=== PATIENT | male | born 1990 | race African-American/Black ===

== ENCOUNTER 2017-12-13 00:03 | Emergency (ER) | payer OTHER ==
[2017-12-13] MEDS ORDERED: METOCLOPRAMIDE 10 MG/2 ML VIAL IVP STA (00:15)
[2017-12-13] MEDS ORDERED: SODIUM CHLORIDE 0.9% 1,000 ML IV ONE (00:15)
[2017-12-13] MEDS ORDERED: KETOROLAC 60 MG/2 ML VIAL IVP STA (00:15)
[2017-12-13] MEDS ORDERED: diphenhydrAMINE INJ 50 MG/ML VIAL IVP STA (00:15)
--- NOTE | 2017-12-13 00:18 | ED Physician Documentation ---
PD HPI HEADACHE - Stated complaint Stated Complaint: HEADACHE - History obtained from History obtained from: Patient, Family - History of Present Illness Timing - onset during: Rest Timing - details: Gradual onset, Still present Location: Front, Global Quality: Aching Associated symptoms: Eye pain. No: Fever Worsened by: Light Similar symptoms before: Work up / diagnostics, Treatment Recently seen: Not recently seen - Additional information Additional information: Patient is a 27 year old male with a history of migraines who is presenting to the emergency department for headache. according to the patient and his family patient had a headache when he woke up this morning. they state that it gets worse with light and denies any alleviating factors. Review of Systems Ten Systems: 10 systems reviewed and negative Constitutional: denies: Fever, Chills GI: denies: Nausea, Vomiting Neurologic: reports: Headache PD PAST MEDICAL HISTORY - Present Medications Home Medications: Ambulatory Orders Medication Instructions Recorded Confirmed Lisinopril 10 mg PO 12/13/17 - Allergies Allergies/Adverse Reactions: Allergies Allergy/AdvReac Type Severity Reaction Status Date / Time No Known Drug Allergies Allergy Verified 12/13/17 00:18 PD ED PE NORMAL - Vitals Vital signs reviewed: Yes - General General: Alert and oriented X 3 - HEENT HEENT: Atraumatic, Ears normal, Moist mucous membranes - Neck Neck: Supple, no meningeal sign - Cardiac Cardiac: RRR - Respiratory Respiratory: No respiratory distress - Derm Derm: Normal color, Warm and dry, No rash - Extremities Extremities: No deformity, Normal ROM s pain, No calf tenderness / cord - Neuro Neuro: Alert and oriented X 3, 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 IV access was gained and patient was treated with fluid bolus, toradol, reglan and benadryl. Patient's blood pressure normalized and patient's headache resolved. while serious etiologies of the patient's headache were considered they were unlikely at this time. Patient required no further inpatient work up and was stable for discharge with outpatient follow up. - Sepsis Event Vital Signs: Vital Signs - 24 hr 12/13/17 12/13/17 00:15 01:09 Temperature 37.3 C Heart Rate 95 75 Respiratory 20 18 Rate Blood Pressure 140/81 H 118/55 L O2 Saturation 95 96 Oxygen O2 Source Room air Departure - Departure Disposition: 01 Home, Self Care Clinical Impression: Migraine Condition: Good Instructions: ED Headache Migraine Follow-Up: primary,care provider [Other] - Within 3 Days Comments: Your symptoms today are being caused by a migraine headache. it is important to track your triggers. two of the most common triggers are dehydration and lack of sleep. It is important to stay well hydrated and get plenty of sleep. Your blood pressure was originally high when you came in but it normalized on its own. You should continue to monitor your blood pressure and work with your pmd to make sure it is well controlled. you may return to the emergency department at any time for new, worsening or uncontrollable symptoms.
[2017-12-13 01:46] VITALS: BP 118/54
== END 2017-12-13 01:46 | disposition home or self-care (01) ==
LOC: ED 00:03
DX: G43.909 Migraine, unspecified, not intractable, without status migrainosus (principal)
CPT/HCPCS: 96361; 96374; 96375; 99283; 99284; J1200; J2765

== ENCOUNTER 2018-01-24 16:38 | Emergency (ER) | payer OTHER ==
--- NOTE | 2018-01-24 17:18 | ED Physician Documentation ---
History of Present Illness - Stated complaint Stated Complaint: RAPID HEART BEAT/DIZZY - Chief complaint Chief Complaint: Cardiac - History obtained from History obtained from: Patient - History of Present Illness Timing: Today (worse today, has been intermittent x 1 month) Pain level max: 0 Pain level now: 0 Improved by: nothing Worsened by: nothing - Additonal information Additional information: Patient has felt like his heartbeat has been irregular for the past month. worse today. Has never sought care before. States feels lightheaded and short of breath. No chest pain. Does not smoke. Has a pmhx of HTN, pt is on lisinopril. No fever. no vomiting. states feels tired today. Review of Systems Ten Systems: 10 systems reviewed and negative Constitutional: denies: Fever, Chills Ears: denies: Ear pain Nose: denies: Rhinorrhea / runny nose, Congestion Throat: denies: Sore throat Cardiac: denies: Chest pain / pressure Respiratory: denies: Cough GI: denies: Abdominal Pain, Nausea, Vomiting, Diarrhea Skin: denies: Rash Musculoskeletal: denies: Neck pain, Back pain Neurologic: denies: Focal weakness, Numbness, Headache PD PAST MEDICAL HISTORY - Past Medical History Past Medical History: Yes Cardiovascular: Hypertension Neuro: Headaches, Migraines - Past Surgical History Past Surgical History: No - Present Medications Home Medications: Ambulatory Orders Medication Instructions Recorded Confirmed Lisinopril 10 mg PO 12/13/17 Rivaroxaban [Xarelto] 15 mg PO BID #42 tablet 01/24/18 diltiaZEM [Cardizem] 30 mg PO Q6H #60 tablet 01/24/18 - Allergies Allergies/Adverse Reactions: Allergies Allergy/AdvReac Type Severity Reaction Status Date / Time No Known Drug Allergies Allergy Verified 01/24/18 16:53 - Social History Does the pt smoke?: No Smoking Status: Never smoker PD ED PE NORMAL - Vitals Vital signs reviewed: Yes - General General: Alert and oriented X 3, No acute distress - HEENT HEENT: Moist mucous membranes - Neck Neck: Supple, no meningeal sign - Cardiac Cardiac: RRR - Respiratory Respiratory: No respiratory distress, Clear bilaterally - Abdomen Abdomen: Soft, Non tender, Non distended - Back Back: No spinal TTP - Derm Derm: Warm and dry, No rash - Extremities Extremities: No edema, No calf tenderness / cord - Neuro Neuro: Alert and oriented X 3 - Psych Psych: Normal mood, Normal affect Results - Vitals Vitals: Vital Signs - 24 hr 01/24/18 01/24/18 01/24/18 16:50 17:57 18:43 Temperature 36.4 C L 36.4 C L Heart Rate 95 75 76 Respiratory 18 14 14 Rate Blood Pressure 122/90 H 123/75 120/82 H O2 Saturation 99 99 100 Oxygen O2 Source Room air - EKG (time done) 1700 Rate: Rate (enter#) (90) Rhythm: Atrial fibrillation, Other (PAC) [place]: Normal Intervals: Normal DC QRS: Normal Ischemia: Normal ST segments 1806 Rate: Rate (enter#) (88) Rhythm: Atrial fibrillation [place]: RAD QRS: Normal Ischemia: ST elevation c/w repol - Labs Labs: Laboratory Tests 01/24/18 01/24/18 01/24/18 17:25 17:25 17:25 WBC 6.3 RBC 5.27 Hgb 15.7 Hct 45.6 MCV 86.6 MCH 29.9 MCHC 34.5 RDW 12.9 Plt Count 367 MPV 7.3 L Neut # (Auto) 2.8 Lymph # (Auto) 2.8 [place] # (Auto) 0.6 Eos # (Auto) 0.1 Baso # (Auto) 0.1 Absolute Nucleated RBC 0.00 Nucleated RBC % 0.0 Sodium 139 Potassium 3.7 Chloride 101 Carbon Dioxide 30 Anion Gap 8.0 BUN 10 Creatinine 1.1 Estimated GFR (MDRD) 97 Glucose 96 Calcium 9.5 Total Bilirubin 1.8 H AST 21 ALT 20 Alkaline Phosphatase 60 Troponin I < 0.04 Total Protein 9.0 H Albumin 4.5 Globulin 4.5 H Albumin/Globulin Ratio 1.0 Lipase 32 TSH Free T4 01/24/18 17:25 WBC RBC Hgb Hct MCV MCH MCHC RDW Plt Count MPV Neut # (Auto) Lymph # (Auto) [place] # (Auto) Eos # (Auto) Baso # (Auto) Absolute Nucleated RBC Nucleated RBC % Sodium Potassium Chloride Carbon Dioxide Anion Gap BUN Creatinine Estimated GFR (MDRD) Glucose Calcium Total Bilirubin AST ALT Alkaline Phosphatase Troponin I Total Protein Albumin Globulin Albumin/Globulin Ratio Lipase TSH 1.04 Free T4 0.89 - Rads (name of study) cxr Radiology: Prelim report reviewed, EMP read contemporaneously, See rad report ( No acute disease) PD MEDICAL DECISION MAKING - ED course Complexity details: reviewed results, re-evaluated patient, considered differential, d/w patient, d/w family ED course: Patient is a 28-year-old male who presents to the emergency department with new onset atrial fibrillation with rapid ventricular response. Controlled well with Cardizem. Symptoms have been ongoing for a month, therefore cardioversion was not attempted at this time. Will place on anticoagulation instead and provide rate control for home. Discussed the case with the hospitalist here, Dr. Duenas who does not feel that admission is warranted at this time. Patient will follow up with his doctor for a outpatient echocardiogram and referral to cardiology. Patient counseled regarding signs and symptoms for which I believe and urgent re-evaluation would be necessary. Patient with good understanding of and agreement to plan and is comfortable going home at this time This document was made in part using voice recognition software. While efforts are made to proofread this document, sound alike and grammatical errors may occur. We did discuss Lovenox and warfarin versus Xarelto. Patient is chosen Xarelto. Counseled regarding risks and benefits. Including nonreversible bleeding. - Sepsis Event Vital Signs: Vital Signs - 24 hr 01/24/18 01/24/18 01/24/18 16:50 17:57 18:43 Temperature 36.4 C L 36.4 C L Heart Rate 95 75 76 Respiratory 18 14 14 Rate Blood Pressure 122/90 H 123/75 120/82 H O2 Saturation 99 99 100 Oxygen O2 Source Room air Departure - Departure Disposition: 01 Home, Self Care Clinical Impression: Atrial fibrillation with RVR Condition: Good Instructions: ED Afib Follow-Up: REBEKAH Francis [Provider Group] - Within 3 Days Prescriptions: diltiaZEM [Cardizem] 30 mg PO Q6H #60 tablet Rivaroxaban [Xarelto] 15 mg PO BID #42 tablet Comments: You need to follow-up with her PCM within the next 3 days. You need an echocardiogram of your heart and a referral to cardiology for your new onset atrial fibrillation. They will likely also want to place you on a Holter monitor to determine the amount of time that you are in atrial fibrillation. Avoid caffeine and stimulants. You are also started on a blood thinner, so please return if you notice rectal bleeding or if you are in any sort of trauma , even if it is minor especially if it affects your head. Forms: Activity restrictions Discharge Date/Time: 01/24/18 18:49
--- NOTE | 2018-01-24 17:28 | XRAY Report ---
Reason: chest pain Procedure Date: 01/24/2018 Accession Number: [id number] / [id number] Procedure: XR - Chest 2 View X-Ray CPT Code: 14035 FULL RESULT: EXAM: CHEST RADIOGRAPHY EXAM DATE: 01/24/2018 05:07 PM. CLINICAL HISTORY: Chest pain and palpitations. COMPARISON: None. TECHNIQUE: 2 views. FINDINGS: Lungs/Pleura: No focal opacities evident. No pleural effusion. No pneumothorax. Normal volumes. Mediastinum: Heart and mediastinal contours are unremarkable. Other: None. IMPRESSION: Normal 2-view chest radiography. RADIA
[2018-01-24] MEDS ORDERED: diltiaZEM INJ 5 MG/ML VIAL IVP STA (17:33)
[2018-01-24 17:36] LABS: BASOPHILS # (AUTO) 0.1 10^3/uL (0.0-0.1); BASOPHILS % (AUTO) 0.8 %; EOSINOPHILS # (AUTO) 0.1 10^3/uL (0.0-0.7); EOSINOPHILS % (AUTO) 1.4 %; HGB - HEMOGLOBIN 15.7 g/dL (14.0-18.0); LYMPHOCYTES # (AUTO) 2.8 10^3/uL (1.5-3.5); LYMPHOCYTES % (AUTO) 43.7 %; MEAN CORPUSCULAR HEMOGLOBIN 29.9 pg (27.0-31.0); MEAN CORPUSCULAR HGB CONC 34.5 g/dL (32.0-36.0); MEAN CORPUSCULAR VOLUME 86.6 fL (80.0-94.0); MEAN PLATELET VOLUME 7.3 fL (7.4-11.4); MONOCYTES # (AUTO) 0.6 10^3/uL (0.0-1.0); MONOCYTES % (AUTO) 9.5 %; NEUTROPHILS # (AUTO) 2.8 10^3/uL (1.5-6.6); NEUTROPHILS % (AUTO) 44.6 %; PLT - PLATELET COUNT 367 10^3/uL (130-450); RED BLOOD COUNT 5.27 10^6/uL (4.70-6.10); RED CELL DISTRIBUTION WIDTH 12.9 % (12.0-15.0); WHITE BLOOD COUNT 6.3 x10^3/uL (4.8-10.8)
[2018-01-24 17:44] LABS: ALBUMIN 4.5 g/dL (3.2-5.5); BILIRUBIN,TOTAL 1.8 mg/dL (0.2-1.0); CALCIUM 9.5 mg/dL (8.5-10.3); CREATININE 1.1 mg/dL (0.6-1.2)
[2018-01-24 18:06] LABS: THYROID STIMULATING HORMONE 1.04 uIU/mL (0.34-5.60)
[2018-01-24 18:08] LABS: FREE T4 (FREE THYROXINE) 0.89 ng/dL (0.58-1.64)
[2018-01-24] MEDS ORDERED: RIVAROXABAN 15 MG TABLET PO STA (18:28)
[2018-01-24] MEDS ORDERED: diltiaZEM 30 MG TABLET PO STA (18:28)
[2018-01-24 18:44] VITALS: BP 120/82
== END 2018-01-24 18:49 | disposition home or self-care (01) ==
LOC: ED 16:38
DX: I48.0 Paroxysmal atrial fibrillation (principal); I10 Essential (primary) hypertension
CPT/HCPCS: 36415; 71046; 80053; 83690; 84439; 84443; 84484; 85025; 93005; 96374; 99284; A9270

== ENCOUNTER 2019-07-25 22:32 | Emergency (ER) | payer OTHER ==
[2019-07-26] MEDS ORDERED: ASPIRIN CHEW 81 MG TABLET PO STA (00:14)
[2019-07-26 00:42] LABS: BASOPHILS # (AUTO) 0.1 10^3/uL (0.0-0.1); EOSINOPHILS # (AUTO) 0.2 10^3/uL (0.0-0.7); EOSINOPHILS % (AUTO) 2.3 %; HGB - HEMOGLOBIN 13.7 g/dL (14.0-18.0); LYMPHOCYTES % (AUTO) 57.6 %; MEAN CORPUSCULAR HEMOGLOBIN 28.7 pg (27.0-31.0); MEAN CORPUSCULAR HGB CONC 32.9 g/dL (32.0-36.0); MEAN PLATELET VOLUME 9.3 fL (7.4-11.4); MONOCYTES # (AUTO) 0.8 10^3/uL (0.0-1.0); MONOCYTES % (AUTO) 11.5 %; NEUTROPHILS # (AUTO) 1.9 10^3/uL (1.5-6.6); NEUTROPHILS % (AUTO) 27.5 %; PLT - PLATELET COUNT 347 10^3/uL (130-450); RED BLOOD COUNT 4.78 10^6/uL (4.70-6.10); RED CELL DISTRIBUTION WIDTH 12.3 % (12.0-15.0)
[2019-07-26 00:56] LABS: BILIRUBIN,TOTAL 0.6 mg/dL (0.2-1.0); CALCIUM 9.2 mg/dL (8.5-10.3); CREATININE 1.1 mg/dL (0.6-1.2)
--- NOTE | 2019-07-26 01:34 | XRAY Report ---
Reason: cough Procedure Date: 07/26/2019 Accession Number: [id number] / [id number] Procedure: XR - Chest 1 View X-Ray CPT Code: 26531 Final Report FULL RESULT: EXAM: CHEST RADIOGRAPHY EXAM DATE: 07/26/2019 01:00 AM. CLINICAL HISTORY: Cough. COMPARISON: CHEST 2 VIEW 01/24/2018 4:58 PM. TECHNIQUE: 1 view. FINDINGS: Lungs/Pleura: No dense consolidation. No large effusion or pneumothorax. No pulmonary edema. Mediastinum: Heart and mediastinal contours are unremarkable. Other: None. IMPRESSION: No acute radiographic pulmonary abnormalities. RADIA
--- NOTE | 2019-07-26 01:37 | ED Physician Documentation ---
PD HPI DYSPNEA - Stated complaint Stated Complaint: CP/SOA - Chief complaint Chief Complaint: Cardiac - History obtained from History obtained from: Patient - History of Present Illness Timing - onset: How many hours ago (2) Timing - onset during: Rest Timing - details: Gradual onset Associated symptoms: No: Fever, Cough - Additional information Additional information: 29 YEAR OLD MALE WITH HYPERTENSION WHO WAS DIAGNOSED WITH ATRIAL FIBRILLATION A YEAR AGO (WHO UNDER EP STUDY BY DR. CHANDRA) PRESNETS TO THE EMERGENCY DEPARTMENT WITH A SUDDEN ONSET OF DULL CHEST PAIN 2 HOURS PRIOR TO ARRIVAL WHILE HE WAS LAYING DOWN. HE REPORTS OF SHORTNESS OF BREATH WITHOUT DIZZINESS, NAUSEA, VOMI TING, DIAPHORESIS. PAIN DID NOT RADIATION AND WAS CENTERED AT ANTERIOR CHEST WALL. HE DENIES ANY COUGH, CONGESTION, FEVER, CHILLS, ARM NUMBNESS, TINGLING. PAIN FELT SIMILAR TO HIS PREVIOUS EPISODE OF ATRIAL FIBRILLATION. HE TAKES FLECANIDE FOR PAROXYSMAL ATRIAL FIBRILLATION. Review of Systems Constitutional: reports: Fever. denies: Chills Eyes: denies: Loss of vision Ears: denies: Loss of hearing, Ear pain Nose: denies: Rhinorrhea / runny nose, Foreign Body Cardiac: reports: Chest pain / pressure. denies: Pedal edema, Calf pain Respiratory: reports: Dyspnea. denies: Cough GI: denies: Abdominal Pain, Abdominal Swelling, Nausea, Vomiting Skin: denies: Rash Musculoskeletal: denies: Neck pain, Back pain, Extremity pain Neurologic: denies: Generalized weakness, Syncope, Seizure PD PAST MEDICAL HISTORY - Past Medical History Cardiovascular: Hypertension, Atrial fibrillation Neuro: Headaches, Migraines - Past Surgical History Past Surgical History: No Cardiovascular: Cardiac catheterization, Other - Present Medications Home Medications: Ambulatory Orders Medication Instructions Recorded Confirmed Flecainide [Tambocar] 1 tab BID 07/25/19 07/25/19 Isosorbide Dinitrate 1 tab DAILY PRN 07/25/19 07/25/19 Naproxen 1 tab BID 07/25/19 07/25/19 - Allergies Allergies/Adverse Reactions: Allergies Allergy/AdvReac Type Severity Reaction Status Date / Time No Known Drug Allergies Allergy Verified 07/26/19 00:11 - Social History Does the pt smoke?: No Smoking Status: Former smoker Does the pt drink ETOH?: No Does the pt have substance abuse?: No - Immunizations Immunizations are current?: Yes PD ED PE NORMAL - Vitals Vital signs reviewed: Yes - General General: Alert and oriented X 3, No acute distress - HEENT HEENT: Atraumatic - Neck Neck: Supple, no meningeal sign, No JVD - Cardiac Cardiac: RRR, No murmur, No gallop, No rub - Respiratory Respiratory: No respiratory distress - Abdomen Abdomen: Normal bowel sounds, Soft - Back Back: No CVA TTP - Derm Derm: Normal color, Warm and dry - Extremities Extremities: No deformity, No tenderness to palpate, Normal ROM s pain, No edema, No calf tenderness / cord - Neuro Neuro: Alert and oriented X 3, 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 Eye Opening: Spontaneous Motor: Obeys Commands Verbal: Oriented GCS Score: 15 - Psych Psych: Normal mood Results - Vitals Vitals: Oxygen O2 Source Room air - EKG (time done) 2243 Rate: Rate (enter#) (70) Rhythm: NSR Intervals: Prolonged AK (218MS), QRS normal QRS: Normal Ischemia: Non specific changes - Labs Labs: Laboratory Tests 07/26/19 07/26/19 07/26/19 00:34 00:34 00:34 WBC 7.0 RBC 4.78 Hgb 13.7 L Hct 41.6 L MCV 87.0 MCH 28.7 MCHC 32.9 RDW 12.3 Plt Count 347 MPV 9.3 Neut # (Auto) 1.9 Lymph # (Auto) 4.0 H [place] # (Auto) 0.8 Eos # (Auto) 0.2 Baso # (Auto) 0.1 Absolute Nucleated RBC 0.00 Nucleated RBC % 0.0 D-Dimer < 200.0 L Sodium 141 Potassium 3.7 Chloride 104 Carbon Dioxide 27 Anion Gap 10.0 BUN 17 Creatinine 1.1 Estimated GFR (MDRD) 96 Glucose 94 Calcium 9.2 Total Bilirubin 0.6 AST 20 ALT 23 Alkaline Phosphatase 53 Troponin I High Sens B-Natriuretic Peptide Total Protein 8.0 Albumin 4.0 Globulin 4.0 Albumin/Globulin Ratio 1.0 Lipase 37 07/26/19 07/26/19 00:34 00:34 WBC RBC Hgb Hct MCV MCH MCHC RDW Plt Count MPV Neut # (Auto) Lymph # (Auto) [place] # (Auto) Eos # (Auto) Baso # (Auto) Absolute Nucleated RBC Nucleated RBC % D-Dimer Sodium Potassium Chloride Carbon Dioxide Anion Gap BUN Creatinine Estimated GFR (MDRD) Glucose Calcium Total Bilirubin AST ALT Alkaline Phosphatase Troponin I High Sens 5.5 B-Natriuretic Peptide < 5 L Total Protein Albumin Globulin Albumin/Globulin Ratio Lipase PD MEDICAL DECISION MAKING - ED course Complexity details: re-evaluated patient, d/w patient ED course: 29 YEAR OLD MALE PRESENTS TO THE EMERGENCY DEPARTMENT WITH SUDDEN ONSET OF CHEST DISCOMFORT PRIOR TO ARRIVAL. HE WAS CONCERNED FOR RECURRENCE OF ATRIAL FIBRILLATION. EKG SHOWED SINUS RHYTHM WITH 1ST DEGREE AV BLOCK. PATIENT R EMAINED HEMODYNAMICALLY STABLE. CXR DID NOT SHOW INFILTRATIVE, PROCESS, PNEUMONIA, PNEUMOTHORAX OR WIDENED MEDIASTINUM TO SUGGEST AORTIC DISSECTION. D- DIMER WAS NEGATIVE; UNLIKELY TO HAVE PULMONARY EMBOLISM. AT THIS TIME, HE WAS STABLE TO BE DISCHARGED WITH CLOSE OUTPATIENT FOLLOW UP WITH DR. CHANDRA. STRICT RETURN INSTRUCTIONS WERE GIVEN. HE EXPRESSED VERBAL UNDERSTANDING AND WAS DISCHARGED IN STABLE CONDITION. Departure - Departure Disposition: 01 Home, Self Care Clinical Impression: Atypical chest pain Condition: Stable Instructions: ED Chest Pain Atypical Unkn Cause Follow-Up: Roberto Carlos Chandra MD [Physician No Access] - Within 1 week Comments: PLEASE CALL DR. CHANDRA'S OFFICE SOON POSSIBLE IN 1 WEEK FOR FOLLOW UP. Discharge Date/Time: 07/26/19 01:55
[2019-07-26 01:45] VITALS: BP 128/86
== END 2019-07-26 01:55 | disposition home or self-care (01) ==
LOC: ED 22:32
DX: R07.89 Other chest pain (principal); I44.0 Atrioventricular block, first degree; I10 Essential (primary) hypertension; Z87.891 Personal history of nicotine dependence
CPT/HCPCS: 36415; 71045; 80053; 83690; 83880; 84484; 85025; 85379; 93005; 99284; A9270

== ENCOUNTER 2019-10-14 11:12 | Emergency (ER) | payer OTHER ==
--- NOTE | 2019-10-14 11:31 | ED Physician Documentation ---
PD HPI CHEST PAIN - Stated complaint Stated Complaint: CHEST PX - Chief complaint Chief Complaint: Cardiac - History obtained from History obtained from: Patient - History of Present Illness Timing - onset: Last night Timing - onset during: Rest Timing - duration: Hours Timing - details: Gradual onset, Still present Quality: Pressure, Tightness Location: Substernal Radiation: No: Jaw, Neck, Back, Abdominal, Left upper extremity, Right upper extremity Improved by: Rest Worsened by: Inspiration Associated symptoms: Shortness of air, Nausea, Feeling faint / dizzy. No: Diaphoresis, Vomiting, General Weakness, Palpitations, Cough Similar symptoms before: Diagnosis (SVT, migraine) Recently seen: Clinic (2 weeks ago video follow up with cariologist.) Review of Systems Constitutional: denies: Fever Eyes: denies: Decreased vision Ears: denies: Ear pain Nose: denies: Rhinorrhea / runny nose, Congestion Throat: denies: Sore throat Cardiac: reports: Chest pain / pressure. denies: Palpitations, Pedal edema, Calf pain Respiratory: reports: Dyspnea. denies: Cough, Wheezing GI: reports: Nausea. denies: Abdominal Pain, Vomiting : denies: Dysuria, Frequency Skin: denies: Rash Musculoskeletal: denies: Neck pain, Back pain, Extremity pain Neurologic: reports: Headache. denies: Generalized weakness, Focal weakness, Numbness, Head injury, LOC PD PAST MEDICAL HISTORY - Past Medical History Cardiovascular: Hypertension, Atrial fibrillation Neuro: Headaches, Migraines - Past Surgical History Past Surgical History: No Cardiovascular: Cardiac catheterization, Other - Present Medications Home Medications: Ambulatory Orders Medication Instructions Recorded Confirmed Flecainide [Tambocar] 1 tab BID 07/25/19 07/25/19 Isosorbide Dinitrate 1 tab DAILY PRN 07/25/19 07/25/19 Naproxen 1 tab BID 07/25/19 07/25/19 Diltiazem HCl [Tiazac] 120 mg PO DAILY 10/14/19 10/14/19 Metoprolol Succinate [Toprol Xl] 12.5 mg PO DAILY 10/14/19 10/14/19 - Allergies Allergies/Adverse Reactions: Allergies Allergy/AdvReac Type Severity Reaction Status Date / Time No Known Drug Allergies Allergy Verified 10/14/19 11:26 - Social History Does the pt smoke?: No Smoking Status: Former smoker Does the pt drink ETOH?: No Does the pt have substance abuse?: No - Immunizations Immunizations are current?: Yes PD ED PE NORMAL - Vitals Vital signs reviewed: Yes (hypertensive ) - General General: Alert and oriented X 3, Well developed/nourished, Other (The patient is sitting in the emergency department with a towel over his eyes and the mask on.) - HEENT HEENT: Atraumatic, PERRL, EOMI, Ears normal, Moist mucous membranes, Pharynx benign, Dentition benign - Neck Neck: Supple, no meningeal sign, No bony TTP - Cardiac Cardiac: RRR, No murmur, Other (anterior chest wall tenderness ) - Respiratory Respiratory: No respiratory distress, Clear bilaterally - Abdomen Abdomen: Soft, Non tender - Back Back: No CVA TTP, No spinal TTP - Derm Derm: Normal color, Warm and dry, No rash - Extremities Extremities: No deformity, No edema - Neuro Neuro: Alert and oriented X 3, 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, No motor deficit, No sensory deficit, Normal speech Eye Opening: Spontaneous Motor: Obeys Commands Verbal: Oriented GCS Score: 15 - Psych Psych: Normal mood, Normal affect Results - Vitals Vitals: Vital Signs - 24 hr 10/14/19 10/14/19 10/14/19 11:23 12:43 13:00 Temperature 36.5 C Heart Rate 65 65 53 L Respiratory 16 18 20 Rate Blood Pressure 121/89 H 123/84 H 122/75 O2 Saturation 99 100 99 10/14/19 10/14/19 13:30 14:14 Temperature 36.8 C Heart Rate 53 L 57 L Respiratory 20 12 Rate Blood Pressure 125/85 H 134/69 H O2 Saturation 99 99 Oxygen O2 Source Room air - EKG (time done) 1125 Rate: Rate (enter#) (60) Rhythm: NSR Ischemia: ST elevation c/w repol, Other (ST elevation consistent with pericarditis) Compare to prior EKG: Unchanged from prior EKG (SPT 07-25-2019 no significant c hanges. ) Computer interpretation: Agree with computer - Labs Labs: Laboratory Tests 10/14/19 10/14/19 10/14/19 11:35 11:35 11:35 WBC 4.1 L RBC 4.49 L Hgb 13.6 L Hct 40.0 L MCV 89.1 MCH 30.3 MCHC 34.0 RDW 12.0 Plt Count 318 MPV 9.1 Neut # (Auto) 1.1 L Lymph # (Auto) 2.3 [place] # (Auto) 0.5 Eos # (Auto) 0.1 Baso # (Auto) 0.0 Absolute Nucleated RBC 0.00 Nucleated RBC % 0.0 ESR Sodium 137 Potassium 4.0 Chloride 102 Carbon Dioxide 28 Anion Gap 7.0 BUN 13 Creatinine 1.1 Estimated GFR (MDRD) 96 Glucose 97 Calcium 8.7 Total Bilirubin 1.6 H AST 22 ALT 21 Alkaline Phosphatase 38 L Troponin I High Sens 6.0 C-Reactive Protein Total Protein 7.7 Albumin 4.0 Globulin 3.7 Albumin/Globulin Ratio 1.1 Lipase 29 10/14/19 10/14/19 11:35 11:35 WBC RBC Hgb Hct MCV MCH MCHC RDW Plt Count MPV Neut # (Auto) Lymph # (Auto) [place] # (Auto) Eos # (Auto) Baso # (Auto) Absolute Nucleated RBC Nucleated RBC % ESR 4 Sodium Potassium Chloride Carbon Dioxide Anion Gap BUN Creatinine Estimated GFR (MDRD) Glucose Calcium Total Bilirubin AST ALT Alkaline Phosphatase Troponin I High Sens C-Reactive Protein < 1.0 Total Protein Albumin Globulin Albumin/Globulin Ratio Lipase - Rads (name of study) chest Radiology: Prelim report reviewed (Impression: Normal single view chest.), EMP read indepedently, See rad report Procedures - IVC sono (time) 1230 Bedside IVC sono: IVC measures (cm) (1.53), Euvolemia PD MEDICAL DECISION MAKING - ED course Complexity details: reviewed old records, reviewed results, re-evaluated patient, considered differential, d/w patient ED course: 29-year-old male with a history of SVT and A. fib with RVR is back in the emergency department today with chest pain similar to what is had previously and a migraine headache. He has improvement in the chest pain with the toradal but not the headache. He is administered IV compazine and benadryl with saline. He has improvement in his headache. His PMD Dr. Swanson at [facility] will follow up with him and have him follow up with cardiology. His chest pain is pleuritic in nature and improved with tordal and decadron. No pericardial effusion was seen and inflammatory markers are not elevated. Departure - Departure Disposition: Home, Self Care Clinical Impression: Atypical chest pain Migraine Qualifiers: Migraine type: unspecified Status migrainosus presence: without status migrainosus Intractability: not intractable Qualified Code(s): G43.909 - Migraine, unspecified, not intractable, without status migrainosus Instructions: ED Chest Pain Atypical Unkn Cause, ED Headache Migraine Follow-Up: Krystle Swanson MD [Primary Care Provider] - Discharge Date/Time: 10/14/19 14:30
[2019-10-14 11:44] LABS: HGB - HEMOGLOBIN 13.6 g/dL (14.0-18.0); RED BLOOD COUNT 4.49 10^6/uL (4.70-6.10); WHITE BLOOD COUNT 4.1 x10^3/uL (4.8-10.8)
[2019-10-14 11:45] LABS: EOSINOPHILS # (AUTO) 0.1 10^3/uL (0.0-0.7); EOSINOPHILS % (AUTO) 2.2 %; LYMPHOCYTES # (AUTO) 2.3 10^3/uL (1.5-3.5); LYMPHOCYTES % (AUTO) 56.2 %; MEAN CORPUSCULAR HEMOGLOBIN 30.3 pg (27.0-31.0); MEAN CORPUSCULAR VOLUME 89.1 fL (80.0-94.0); MEAN PLATELET VOLUME 9.1 fL (7.4-11.4); MONOCYTES # (AUTO) 0.5 10^3/uL (0.0-1.0); MONOCYTES % (AUTO) 12.7 %; NEUTROPHILS # (AUTO) 1.1 10^3/uL (1.5-6.6); NEUTROPHILS % (AUTO) 27.7 %; PLT - PLATELET COUNT 318 10^3/uL (130-450)
[2019-10-14 11:58] LABS: ALBUMIN/GLOBULIN RATIO 1.1 (1.0-2.2); BILIRUBIN,TOTAL 1.6 mg/dL (0.2-1.0); CALCIUM 8.7 mg/dL (8.5-10.3); CREATININE 1.1 mg/dL (0.6-1.2); TOTAL PROTEIN 7.7 g/dL (6.7-8.2)
--- NOTE | 2019-10-14 12:01 | XRAY Report ---
Reason: Chest pain Procedure Date: 10/14/2019 Accession Number: [id number] / [id number] Procedure: XR - Chest 1 View X-Ray CPT Code: 44951 Final Report FULL RESULT: EXAM: CHEST RADIOGRAPHY EXAM DATE: 10/14/2019 11:54 AM. CLINICAL HISTORY: Chest pain. COMPARISON: CHEST 1 VIEW 07/26/2019 12:44 AM. TECHNIQUE: 1 view. FINDINGS: Lungs/Pleura: No focal opacities evident. No pleural effusion. No pneumothorax. Mediastinum: Within exam limitations, the cardiomediastinal contour is normal. Other: None. IMPRESSION: Normal single view chest. RADIA
[2019-10-14] MEDS ORDERED: KETOROLAC 30 MG/ML VIAL IVP STA (12:28)
[2019-10-14] MEDS ORDERED: DEXAMETHASONE 10 MG/ML VIAL IVP STA (12:29)
[2019-10-14] MEDS ORDERED: SODIUM CHLORIDE 0.9% 1,000 ML IV STA (13:48)
[2019-10-14] MEDS ORDERED: diphenhydrAMINE INJ 50 MG/ML VIAL IVP STA (13:48)
[2019-10-14] MEDS ORDERED: PROCHLORPERAZINE 10 MG/2 ML VIAL IVP STA (13:48)
[2019-10-14 14:16] VITALS: BP 134/69
== END 2019-10-14 14:30 | disposition home or self-care (01) ==
LOC: ED 11:12
DX: R07.89 Other chest pain (principal); G43.909 Migraine, unspecified, not intractable, without status migrainosus; I10 Essential (primary) hypertension; Z87.891 Personal history of nicotine dependence
CPT/HCPCS: 36415; 71045; 80053; 83690; 84484; 85025; 85651; 86140; 93005; 96374; 96375; 99284; J1200

== ENCOUNTER 2019-10-26 14:19 | Emergency (ER) | payer OTHER ==
[2019-10-26 14:44] LABS: BASOPHILS # (AUTO) 0.1 10^3/uL (0.0-0.1); EOSINOPHILS # (AUTO) 0.1 10^3/uL (0.0-0.7); EOSINOPHILS % (AUTO) 1.3 %; HGB - HEMOGLOBIN 14.4 g/dL (14.0-18.0); LYMPHOCYTES # (AUTO) 2.4 10^3/uL (1.5-3.5); LYMPHOCYTES % (AUTO) 50.4 %; MEAN CORPUSCULAR HEMOGLOBIN 30.3 pg (27.0-31.0); MEAN CORPUSCULAR VOLUME 89.3 fL (80.0-94.0); MEAN PLATELET VOLUME 9.2 fL (7.4-11.4); MONOCYTES # (AUTO) 0.6 10^3/uL (0.0-1.0); MONOCYTES % (AUTO) 11.5 %; NEUTROPHILS # (AUTO) 1.7 10^3/uL (1.5-6.6); NEUTROPHILS % (AUTO) 35.6 %; PLT - PLATELET COUNT 327 10^3/uL (130-450); RED BLOOD COUNT 4.75 10^6/uL (4.70-6.10); RED CELL DISTRIBUTION WIDTH 12.2 % (12.0-15.0); WHITE BLOOD COUNT 4.8 x10^3/uL (4.8-10.8)
--- NOTE | 2019-10-26 14:53 | ED Physician Documentation ---
PD HPI CHEST PAIN - Stated complaint Stated Complaint: CHEST PRESSURE - Chief complaint Chief Complaint: Cardiac - History obtained from History obtained from: Patient - History of Present Illness Timing - onset: Other (29-year-old gentleman with history of atrial fibrillation and potentially pericarditis presents with chest pressure that started last night became more market this morning at rest at 10 AM. He notices it most if he takes a deep breath in. He says it feels like a rubber band stretching and then sometimes it releases and the pain goes away. There is no associated shortness of breath, pedal edema, calf pain, hemoptysis. He does have a history of atrial fibrillation. As far as he knows the last time he was in atrial fibrillation was December 2017. He is maintained on diltiazem, Xarelto.) Review of Systems Ten Systems: 10 systems reviewed and negative Constitutional: reports: Reviewed and negative Cardiac: reports: Chest pain / pressure. denies: Palpitations, Pedal edema, Calf pain Respiratory: denies: Dyspnea PD PAST MEDICAL HISTORY - Past Medical History Cardiovascular: Hypertension, Atrial fibrillation Respiratory: None Neuro: Headaches, Migraines Endocrine/Autoimmune: None GI: None : None HEENT: None Musculoskeletal: None Derm: None - Past Surgical History Past Surgical History: No Cardiovascular: Cardiac catheterization, Other - Present Medications Home Medications: Ambulatory Orders Medication Instructions Recorded Confirmed Flecainide [Tambocar] 50 mg PO BID 07/25/19 10/26/19 Isosorbide Dinitrate 30 mg PO DAILY PRN 07/25/19 10/26/19 Naproxen 500 mg PO BID 07/25/19 10/26/19 Diltiazem HCl [Tiazac] 120 mg PO DAILY 10/14/19 10/26/19 Metoprolol Succinate [Toprol Xl] 0.5 tab PO DAILY 10/14/19 10/26/19 Rivaroxaban [Xarelto] 0 mg PO DAILY 10/26/19 10/26/19 - Allergies Allergies/Adverse Reactions: Allergies Allergy/AdvReac Type Severity Reaction Status Date / Time No Known Drug Allergies Allergy Verified 10/14/19 11:26 - Social History Does the pt smoke?: No Smoking Status: Never smoker Does the pt drink ETOH?: No Does the pt have substance abuse?: No - Immunizations Immunizations are current?: Yes PD ED PE NORMAL - Vitals Vital signs reviewed: Yes - General General: Alert and oriented X 3, Other (Appears well but slightly anxious) - HEENT HEENT: PERRL, EOMI - Neck Neck: Supple, no meningeal sign, No bony TTP - Cardiac Cardiac: RRR, No murmur - Respiratory Respiratory: No respiratory distress, Clear bilaterally - Abdomen Abdomen: Non tender - Extremities Extremities: No edema, No calf tenderness / cord - Neuro Neuro: Alert and oriented X 3, Normal speech Results - Vitals Vitals: Vital Signs - 24 hr 10/26/19 10/26/19 10/26/19 14:25 14:41 15:08 Temperature 36.5 C Heart Rate 80 70 63 Respiratory 16 20 18 Rate Blood Pressure 140/76 H 135/84 H 145/82 H O2 Saturation 98 99 Oxygen O2 Source Room air - EKG (time done) 1431 Rate: Rate (enter#) (78) Rhythm: NSR [place]: Normal Intervals: Prolonged [place] QRS: Normal Ischemia: ST elevation c/w repol (mild). No: ST depression Computer interpretation: Agree with computer - Labs Labs: Laboratory Tests 10/26/19 10/26/19 10/26/19 14:34 14:34 14:34 WBC 4.8 RBC 4.75 Hgb 14.4 Hct 42.4 MCV 89.3 MCH 30.3 MCHC 34.0 RDW 12.2 Plt Count 327 MPV 9.2 Neut # (Auto) 1.7 Lymph # (Auto) 2.4 [place] # (Auto) 0.6 Eos # (Auto) 0.1 Baso # (Auto) 0.1 Absolute Nucleated RBC 0.00 Nucleated RBC % 0.0 Sodium 138 Potassium 3.6 Chloride 101 Carbon Dioxide 31 Anion Gap 6.0 BUN 13 Creatinine 1.1 Estimated GFR (MDRD) 96 Glucose 85 Calcium 9.4 Total Bilirubin 1.4 H AST 21 ALT 22 Alkaline Phosphatase 45 Troponin I High Sens 5.7 Total Protein 8.2 Albumin 4.2 Globulin 4.0 Albumin/Globulin Ratio 1.1 Lipase 35 PD MEDICAL DECISION MAKING - ED course ED course: 29-year-old gentleman with history of atrial fibrillation but no other heart disease presents with atypical pleuritic type chest pain. No risk factors for DVT/PE and he is anticoagulated. Heart score 0. Departure - Departure Disposition: 01 Home, Self Care Clinical Impression: Atypical chest pain Condition: Good Record reviewed to determine appropriate education?: Yes Instructions: ED Chest Pain Atypical Unkn Cause Comments: There is no evidence of anything serious going on today, follow-up with your primary care physician and a and p technician for further evaluation and treatment. Return if worse.
[2019-10-26 14:56] LABS: ALBUMIN 4.2 g/dL (3.2-5.5); ALBUMIN/GLOBULIN RATIO 1.1 (1.0-2.2); BILIRUBIN,TOTAL 1.4 mg/dL (0.2-1.0); CALCIUM 9.4 mg/dL (8.5-10.3); CREATININE 1.1 mg/dL (0.6-1.2); TOTAL PROTEIN 8.2 g/dL (6.7-8.2)
--- NOTE | 2019-10-26 15:00 | XRAY Report ---
Reason: Chest pain Procedure Date: 10/26/2019 Accession Number: [id number] / [id number] Procedure: XR - Chest 1 View X-Ray CPT Code: 97661 Final Report FULL RESULT: EXAM: CHEST RADIOGRAPHY EXAM DATE: 10/26/2019 02:51 PM. CLINICAL HISTORY: Chest pain. Chest pressure last night. COMPARISON: CHEST 1 VIEW 10/14/2019 11:31 AM. TECHNIQUE: 1 view. FINDINGS: Lungs/Pleura: No focal opacities evident. No pleural effusion. No pneumothorax. Mediastinum: Within exam limitations, the cardiomediastinal contour is normal. Other: None. IMPRESSION: Normal single view chest. RADIA
[2019-10-26 15:11] VITALS: BP 145/82
== END 2019-10-26 15:30 | disposition home or self-care (01) ==
LOC: ED 14:19
DX: R07.89 Other chest pain (principal); I44.0 Atrioventricular block, first degree; I48.91 Unspecified atrial fibrillation; Z79.01 Long term (current) use of anticoagulants; I10 Essential (primary) hypertension
CPT/HCPCS: 36415; 71045; 80053; 83690; 84484; 85025; 93005; 99284

== ENCOUNTER 2019-11-23 21:21 | Emergency (ER) | payer OTHER ==
--- NOTE | 2019-11-23 21:55 | ED Physician Documentation ---
PD HPI DYSPNEA - Stated complaint Stated Complaint: CHEST PALPITATIONS/PRESSURE - Chief complaint Chief Complaint: Cardiac - History obtained from History obtained from: Patient - History of Present Illness Timing - onset: How many hours ago (2) Timing - onset during: Light activity (was standing and cooking at time of feeling palpitations/fast heart rate. Had atrial fib episode couple years ago. Not recently. On anticoag. Has had similar episodes without ECG findings the past month or two.) Timing - details: Abrupt onset, Still present (but feeling improved compared to onset.) Inciting event(s): No: URI Worsened by: No: Exertion Associated symptoms: No: Cough, Wheezing Similar symptoms before: Diagnosis (no rhythm abnormal on recent ER visits for same. Prior history of atrial fib once.) Review of Systems Constitutional: denies: Fever, Chills Nose: denies: Rhinorrhea / runny nose, Congestion Throat: denies: Sore throat Respiratory: denies: Cough GI: denies: Nausea, Vomiting, Diarrhea Neurologic: denies: Altered mental status, Headache PD PAST MEDICAL HISTORY - Past Medical History Past Medical History: Yes Cardiovascular: Hypertension, Atrial fibrillation Respiratory: None Neuro: Headaches, Migraines Endocrine/Autoimmune: None GI: None : None HEENT: None Musculoskeletal: None Derm: None Other Past Medical History: SVT - Past Surgical History Past Surgical History: No Cardiovascular: Cardiac catheterization, Other - Present Medications Home Medications: Ambulatory Orders Medication Instructions Recorded Confirmed Flecainide [Tambocar] 50 mg PO BID 07/25/19 11/23/19 Isosorbide Dinitrate 30 mg PO DAILY PRN 07/25/19 11/23/19 Naproxen 500 mg PO BID 07/25/19 11/23/19 Diltiazem HCl [Tiazac] 120 mg PO DAILY 10/14/19 11/23/19 Metoprolol Succinate [Toprol Xl] 0.5 tab PO DAILY 10/14/19 11/23/19 Rivaroxaban [Xarelto] 0 mg PO DAILY 10/26/19 11/23/19 - Allergies Allergies/Adverse Reactions: Allergies Allergy/AdvReac Type Severity Reaction Status Date / Time No Known Drug Allergies Allergy Verified 11/23/19 21:27 - Social History Does the pt smoke?: No Smoking Status: Never smoker Does the pt drink ETOH?: Yes Does the pt have substance abuse?: No - Immunizations Immunizations are current?: Yes - POLST Patient has POLST: No PD ED PE NORMAL - Vitals Vital signs reviewed: Yes - General General: Alert and oriented X 3, No acute distress, Well developed/nourished - HEENT HEENT: Moist mucous membranes, Pharynx benign - Neck Neck: Supple, no meningeal sign, No adenopathy - Cardiac Cardiac: RRR, No murmur - Respiratory Respiratory: Clear bilaterally - Abdomen Abdomen: Soft, Non tender - Back Back: No spinal TTP - Derm Derm: Normal color, Warm and dry - Extremities Extremities: No deformity, No tenderness to palpate, No edema, No calf tenderness / cord - Neuro Neuro: Alert and oriented X 3, No motor deficit, Normal speech Results - Vitals Vitals: Vital Signs - 24 hr 11/23/19 11/23/19 11/23/19 21:24 21:41 22:53 Temperature 36.9 C Heart Rate 73 67 76 Respiratory 18 18 18 Rate Blood Pressure 149/79 H 140/84 H 148/96 H O2 Saturation 100 98 98 11/23/19 23:19 Temperature 36.5 C Heart Rate 76 Respiratory 16 Rate Blood Pressure 155/94 H O2 Saturation 100 Oxygen O2 Source Room air - EKG (time done) 21:32 Rate: Rate (enter#) (77) Rhythm: NSR [place]: Normal Intervals: Normal [place] QRS: Normal Ischemia: Normal ST segments, ST elevation c/w repol. No: ST elevation c/w ischemia, ST depression Compare to prior EKG: Unchanged from prior EKG - Tele (time rhythm occurred) in ER Telemetry / rhythm strip: NSR (no ectopy while on monitor) - Rads (name of study) chest xray Radiology: Prelim report reviewed (normal), See rad report Departure - Departure Disposition: 01 Home, Self Care Clinical Impression: Chest discomfort, Palpitations Condition: Stable Record reviewed to determine appropriate education?: Yes Instructions: ED Chest Pain Atypical Unkn Cause Follow-Up: Krystle Swanson MD [Primary Care Provider] - Comments: Your EKG and chest x-ray are normal here. I would continue your usual medicines at home. No ongoing irregular heart rhythm at this time. Return as needed. Discharge Date/Time: 11/23/19 23:20
[2019-11-23] MEDS ORDERED: KETOROLAC 15 MG/ML VIAL IVP STA (22:18)
[2019-11-23 23:20] VITALS: BP 155/94
--- NOTE | 2019-11-24 08:35 | XRAY Report ---
PROCEDURE: Chest 1 View X-Ray INDICATIONS: chest pressure TECHNIQUE: One view of the chest was acquired. COMPARISON: Chest x-ray 10/26/2019 FINDINGS: Surgical changes and devices: None. Lungs and pleura: No pleural effusions or pneumothorax. Lungs are clear. Mediastinum: Mediastinal contours appear normal. Heart size is normal. Bones and chest wall: No suspicious bony lesions. Overlying soft tissues appear unremarkable. IMPRESSION: No acute pulmonary process. The above findings are concordant with preliminary report. Reviewed by: Fallon Bear MD on 11/24/2019 8:33 AM PDT Approved by: Fallon Bear MD on 11/24/2019 8:33 AM PDT Station ID: [id number]
== END 2019-11-23 23:20 | disposition home or self-care (01) ==
LOC: ED 21:21
DX: R07.89 Other chest pain (principal); R00.2 Palpitations
CPT/HCPCS: 71045; 93005; 96374; 99283

== ENCOUNTER 2019-11-29 12:25 | Outpatient (CLI) | payer OTHER | END 2019-11-29 12:26 | disposition critical access hospital (66) | LOC: EMS 12:25 | PROVIDERS: ATTEND Surgery | DX: I48.91 Unspecified atrial fibrillation (principal) | CPT/HCPCS: A0425; A0429 ==

== ENCOUNTER 2019-11-29 12:57 | Emergency (ER) | payer OTHER ==
[2019-11-29] MEDS ORDERED: DILTIAZEM 50 MG/10 ML VIAL IVP ONE ×2 (13:11→14:19)
--- NOTE | 2019-11-29 13:15 | ED Physician Documentation ---
History of Present Illness - Stated complaint Stated Complaint: AFIB - Chief complaint Chief Complaint: Cardiac - History obtained from History obtained from: Patient - History of Present Illness Timing: Enter time (1029), Today - Additonal information Additional information: 29-year-old male with a history of intermittent atrial fibrillation has devel oped rapid irregular pulse this morning and he went directly to the [employer] as he has had this happen to him previously where his heart rate will return to normal after period time. They were able to capture atrial fibrillation and have sent the patient to the emergency department here for evaluation with atrial fibrillation with rapid ventricular response. He is transported to the emergency department without incident without specific symptoms other than feeling palpitations. He feels like there is somebody tapping on his chest. He does not have the typical inspiratory pain that he usually has associated with this. Review of Systems Constitutional: denies: Fever Eyes: denies: Decreased vision Ears: denies: Ear pain Nose: denies: Rhinorrhea / runny nose, Congestion Throat: denies: Sore throat Cardiac: reports: Palpitations. denies: Chest pain / pressure Respiratory: reports: Dyspnea. denies: Cough GI: denies: Abdominal Pain, Nausea, Vomiting : denies: Dysuria PD PAST MEDICAL HISTORY - Past Medical History Cardiovascular: Hypertension, Atrial fibrillation Respiratory: None Neuro: Headaches, Migraines Endocrine/Autoimmune: None GI: None : None HEENT: None Musculoskeletal: None Derm: None - Past Surgical History Past Surgical History: No Cardiovascular: Cardiac catheterization, Other - Present Medications Home Medications: Ambulatory Orders Medication Instructions Recorded Confirmed Flecainide [Tambocar] 50 mg PO BID PRN 07/25/19 11/29/19 Isosorbide Dinitrate 30 mg PO DAILY PRN 07/25/19 11/29/19 Diltiazem HCl [Tiazac] 120 mg PO DAILY 10/14/19 11/29/19 Metoprolol Succinate [Toprol Xl] 12.5 mg PO DAILY 10/14/19 11/29/19 - Allergies Allergies/Adverse Reactions: Allergies Allergy/AdvReac Type Severity Reaction Status Date / Time No Known Drug Allergies Allergy Verified 11/29/19 13:05 - Social History Does the pt smoke?: No Smoking Status: Never smoker Does the pt drink ETOH?: Yes Does the pt have substance abuse?: No - Immunizations Immunizations are current?: Yes - POLST Patient has POLST: No PD ED PE NORMAL - Vitals Vital signs reviewed: Yes (tachy and hypertensive ) - General General: Alert and oriented X 3, No acute distress, Well developed/nourished - HEENT HEENT: Atraumatic, PERRL, EOMI - Neck Neck: Supple, no meningeal sign, No bony TTP - Cardiac Cardiac: No murmur, Other (rapid irregular heart rate ) - Respiratory Respiratory: No respiratory distress, Clear bilaterally - Abdomen Abdomen: Soft, Non tender, No organomegaly - Back Back: No CVA TTP, No spinal TTP - Derm Derm: Normal color, Warm and dry, No rash - Extremities Extremities: Normal ROM s pain, No edema, No calf tenderness / cord - Neuro Neuro: Alert and oriented X 3, forensic pathologist 2-12 intact, No motor deficit, No sensory deficit, Normal speech Eye Opening: Spontaneous Motor: Obeys Commands Verbal: Oriented GCS Score: 15 - Psych Psych: Normal mood, Normal affect Results - Vitals Vitals: Vital Signs - 24 hr 11/29/19 11/29/19 11/29/19 13:05 13:14 13:30 Temperature 37 C Heart Rate 150 H 124 H 77 Respiratory 14 12 16 Rate Blood Pressure 141/95 H 133/84 H 132/76 H O2 Saturation 98 98 99 11/29/19 11/29/19 14:30 15:00 Temperature Heart Rate 88 84 Respiratory 17 15 Rate Blood Pressure 125/76 139/91 H O2 Saturation 97 98 Oxygen O2 Source Room air - EKG (time done) 1304 Rhythm: Atrial fibrillation (123) [place]: RAD Compare to prior EKG: Changed from prior EKG (SPT 11-23-2019 the rhythm has c hanged to afib and the rate is faster. ) Computer interpretation: Agree with computer - Labs Labs: Laboratory Tests 11/29/19 11/29/19 11/29/19 13:20 13:20 13:20 WBC 7.5 RBC 4.77 Hgb 13.9 L Hct 42.2 MCV 88.5 MCH 29.1 MCHC 32.9 RDW 12.5 Plt Count 306 MPV 9.6 Neut # (Auto) 5.4 Lymph # (Auto) 1.6 [place] # (Auto) 0.4 Eos # (Auto) 0.0 Baso # (Auto) 0.0 Absolute Nucleated RBC 0.00 Nucleated RBC % 0.0 Sodium 144 Potassium 4.0 Chloride 106 Carbon Dioxide 27 Anion Gap 11.0 BUN 12 Creatinine 1.1 Estimated GFR (MDRD) 96 Glucose 102 H Calcium 9.2 Total Bilirubin 1.0 AST 20 ALT 26 Alkaline Phosphatase 43 Troponin I High Sens B-Natriuretic Peptide 34 Total Protein 7.6 Albumin 4.3 Globulin 3.3 Albumin/Globulin Ratio 1.3 Lipase 27 11/29/19 13:20 WBC RBC Hgb Hct MCV MCH MCHC RDW Plt Count MPV Neut # (Auto) Lymph # (Auto) [place] # (Auto) Eos # (Auto) Baso # (Auto) Absolute Nucleated RBC Nucleated RBC % Sodium Potassium Chloride Carbon Dioxide Anion Gap BUN Creatinine Estimated GFR (MDRD) Glucose Calcium Total Bilirubin AST ALT Alkaline Phosphatase Troponin I High Sens 8.0 B-Natriuretic Peptide Total Protein Albumin Globulin Albumin/Globulin Ratio Lipase PD MEDICAL DECISION MAKING - ED course Complexity details: re-evaluated patient, considered differential, d/w patient, d/w PMD (Dr. Swanson will review outpatient medications with the patient this week. ) ED course: 29-year-old male with a history of intermittent atrial fibrillation has developed again atrial fibrillation with rapid ventricular response. He has st opped his Pradaxa. He is administered diltiazem 20 mg intravenously and a second 25 mg intravenous dose with reduction in his heart rate under 90 and resolution of his symptoms. He is not able to sense the atrial fibrillation. And appears to be tolerating. Is discharged to home with atrial fibrillation with controlled rate. He has an appointment to see Dr. Mirza in 1 week. He will follow-up with his primary Dr. Swanson this week for review of his medications. Departure - Departure Disposition: 01 Home, Self Care Clinical Impression: Atrial fibrillation with RVR Condition: Stable Instructions: ED Afib Follow-Up: Krystle Swanson MD [Physician No Access] - Roberto Carlos Chandra MD [Physician No Access] - Comments: Today we were able to control your rate but we were not able to get you to convert into a normal rhythm.Follow-up with Dr. Mirza next week. Recurrence of rapid rate return to the emergency department. Continue your regular medications and restart your Xarelto. Discharge Date/Time: 11/29/19 15:17
[2019-11-29 13:38] LABS: BASOPHILS % (AUTO) 0.5 %; EOSINOPHILS % (AUTO) 0.1 %; HGB - HEMOGLOBIN 13.9 g/dL (14.0-18.0); LYMPHOCYTES # (AUTO) 1.6 10^3/uL (1.5-3.5); MEAN CORPUSCULAR HEMOGLOBIN 29.1 pg (27.0-31.0); MEAN CORPUSCULAR HGB CONC 32.9 g/dL (32.0-36.0); MEAN CORPUSCULAR VOLUME 88.5 fL (80.0-94.0); MEAN PLATELET VOLUME 9.6 fL (7.4-11.4); MONOCYTES # (AUTO) 0.4 10^3/uL (0.0-1.0); MONOCYTES % (AUTO) 5.5 %; NEUTROPHILS # (AUTO) 5.4 10^3/uL (1.5-6.6); NEUTROPHILS % (AUTO) 72.5 %; PLT - PLATELET COUNT 306 10^3/uL (130-450); RED BLOOD COUNT 4.77 10^6/uL (4.70-6.10); RED CELL DISTRIBUTION WIDTH 12.5 % (12.0-15.0); WHITE BLOOD COUNT 7.5 x10^3/uL (4.8-10.8)
[2019-11-29 13:57] LABS: ALBUMIN 4.3 g/dL (3.2-5.5); ALBUMIN/GLOBULIN RATIO 1.3 (1.0-2.2); CALCIUM 9.2 mg/dL (8.5-10.3); CREATININE 1.1 mg/dL (0.6-1.2); TOTAL PROTEIN 7.6 g/dL (6.7-8.2)
[2019-11-29 15:08] VITALS: BP 139/91
== END 2019-11-29 15:17 | disposition home or self-care (01) ==
LOC: EDUNIT# → ED 12:57
DX: I48.20 Chronic atrial fibrillation, unspecified (principal); I10 Essential (primary) hypertension
CPT/HCPCS: 36415; 80053; 83690; 83880; 84484; 85025; 93005; 96374; 96376; 99284

== ENCOUNTER 2020-02-22 21:18 | Emergency (ER) | payer OTHER ==
[2020-02-22] MEDS ORDERED: SODIUM CHLORIDE 0.9% 1,000 ML IV STA (22:27)
--- NOTE | 2020-02-22 22:29 | ED Physician Documentation ---
History of Present Illness - Stated complaint Stated Complaint: CP/PRESSURE/DIZZINESS - Chief complaint Chief Complaint: Cardiac - History obtained from History obtained from: Patient - Additonal information Additional information: Patient comes emergency department complaining of an episode of heart pounding this evening after getting upset. Patient states that he was feeling fine before that. He has a history of SVT and A. fib and has had an unsuccessful a ablation previously. He states that he follows with Dr. Chandra and was on Xarelto for a year after the diagnosis of A. fib. Patient states that he actually was doing fairly well until about 4 5 months ago when his stress levels went up, due to things going on in the [place]. He states that he has had a lot more palpitations since. Patient states he takes metoprolol and isosorbide, as well as flecainide as needed. He states that when his symptoms started a Few hours ago, he did take a dose of flecainide. Patient states that he does feel a little lightheaded now and that this is been going on since he got upset. He also states that sometimes it feels as though the room is spinning. No other complaints at this time. No chest pain or shortness of breath. Review of Systems Ten Systems: 10 systems reviewed and negative Constitutional: reports: Reviewed and negative Eyes: reports: Reviewed and negative Ears: reports: Reviewed and negative Nose: reports: Reviewed and negative Throat: reports: Reviewed and negative Cardiac: reports: Palpitations Respiratory: denies: Dyspnea GI: reports: Reviewed and negative : reports: Reviewed and negative Skin: reports: Reviewed and negative Musculoskeletal: reports: Reviewed and negative Neurologic: reports: Other (Dizzy/lightheaded) Psychiatric: reports: Reviewed and negative Endocrine: reports: Reviewed and negative Immunocompromised: reports: Reviewed and negative PD PAST MEDICAL HISTORY - Past Medical History Past Medical History: Yes Cardiovascular: Hypertension, Atrial fibrillation Respiratory: None Neuro: Headaches, Migraines Endocrine/Autoimmune: None GI: None : None HEENT: None Psych: None Musculoskeletal: None Derm: None - Past Surgical History Past Surgical History: No Cardiovascular: Cardiac catheterization, Other - Present Medications Home Medications: Ambulatory Orders Medication Instructions Recorded Confirmed Flecainide [Tambocar] 50 mg PO BID PRN 07/25/19 11/29/19 Isosorbide Dinitrate 30 mg PO DAILY PRN 07/25/19 11/29/19 Diltiazem HCl [Tiazac] 120 mg PO DAILY 10/14/19 11/29/19 Metoprolol Succinate [Toprol Xl] 12.5 mg PO DAILY 10/14/19 11/29/19 - Allergies Allergies/Adverse Reactions: Allergies Allergy/AdvReac Type Severity Reaction Status Date / Time No Known Drug Allergies Allergy Verified 02/22/20 21:36 - Social History Does the pt smoke?: No Smoking Status: Never smoker Does the pt drink ETOH?: Yes Does the pt have substance abuse?: No - Immunizations Immunizations are current?: Yes - POLST Patient has POLST: No PD ED PE NORMAL - Vitals Vital signs reviewed: Yes - General General: Alert and oriented X 3, No acute distress, Well developed/nourished - HEENT HEENT: Atraumatic, PERRL, EOMI, Moist mucous membranes - Neck Neck: Supple, no meningeal sign - Cardiac Cardiac: RRR, No murmur, Strong equal pulses - Respiratory Respiratory: No respiratory distress, Clear bilaterally - Abdomen Abdomen: Soft, Non tender, Non distended - Derm Derm: Normal color, Warm and dry, No rash - Extremities Extremities: No deformity, No edema, No calf tenderness / cord - Neuro Neuro: Alert and oriented X 3, Other (Grossly normal) - Psych Psych: Normal mood, Normal affect Results - Vitals Vitals: Vital Signs - 24 hr 02/22/20 02/22/20 02/22/20 21:25 21:44 21:47 Temperature 36.4 C L Heart Rate 63 76 57 L Respiratory 16 16 15 Rate Blood Pressure 153/96 H 141/96 H 141/96 H O2 Saturation 99 99 97 02/22/20 02/22/20 22:44 22:58 Temperature 36.8 C Heart Rate 62 56 L Respiratory 15 14 Rate Blood Pressure 136/96 H 136/96 H O2 Saturation 98 98 Oxygen O2 Source Room air - EKG (time done) 2125 Rate: Rate (enter#) (68) Rhythm: NSR [place]: RAD Intervals: Prolonged [place] QRS: Normal Ischemia: Normal ST segments. No: T wave inversion Compare to prior EKG: Old EKG unavailable Computer interpretation: Agree with computer PD MEDICAL DECISION MAKING - ED course Complexity details: reviewed old records, reviewed results, re-evaluated patient, considered differential, d/w patient ED course: Patient was worked up with labs and EKG and given a 1 L bolus 0.9 normal saline. The patient was found to be in sinus rhythm, with intermittent sinus irregularity. The patient's labs were unremarkable. I felt that he was stable for discharge home. We have discussed home management of the symptoms, as well as usual term. We have also discussed the need for follow-up. Departure - Departure Disposition: 01 Home, Self Care Clinical Impression: Palpitations, Dizziness Condition: Stable Instructions: ED Dizziness UKO, ED Palpitations Comments: Your labs look good. You have been treated with IV fluids today to help with your sense of dizziness. If you continue to have an increase in the frequency of your palpitations/fast heart rate, please talk to Dr. Chandra about what more needs to be done. Discharge Date/Time: 02/22/20 22:59
[2020-02-22] MEDS ORDERED: MECLIZINE 12.5 MG TABLET PO STA (22:31)
[2020-02-22 22:45] VITALS: BP 136/96
== END 2020-02-22 22:59 | disposition home or self-care (01) ==
LOC: ED 21:18
DX: R00.2 Palpitations (principal); R42 Dizziness and giddiness; I44.0 Atrioventricular block, first degree; I10 Essential (primary) hypertension; Z86.79 Personal history of other diseases of the circulatory system
CPT/HCPCS: 36415; 93005; 99283; 99284; A9270

== ENCOUNTER 2020-03-07 11:19 | Emergency (ER) | payer OTHER ==
--- NOTE | 2020-03-07 12:06 | ED Physician Documentation ---
History of Present Illness - Stated complaint Stated Complaint: CP SOA - Chief complaint Chief Complaint: Cardiac - Additonal information Additional information: 30-year-old male presents to the emergency department for chief complaint of sh christ chest pain worse when he takes a deep breath and typically worse when he reaches with his left arm across to the right. This pain has been intermittent for much of the last 3 to 4 months. He has been seen twice previously for this. This gentleman does have a history of both atrial fibrillation as well as SVT. He underwent an ablation with Dr. Hortensia Dillard in [place] nearly 1 year ago for his atrial fibrillation and palpitations. He stated that initially after the ablation his symptoms are improved and he only occasionally had palpitations. However since October or November the frequency of chest pain, pressure and palpitations has increased markedly. He denies any fevers, no cough. He is occasionally experiencing dyspnea with exertion. He has had no syncopal episodes. No unilateral leg swelling. Meds: diltiazem twice daily, Isorbide daily, flecainide as PRN Review of Systems Constitutional: denies: Fever, Chills, Myalgias Eyes: denies: Loss of vision Ears: denies: Loss of hearing Nose: reports: Reviewed and negative Cardiac: reports: Chest pain / pressure, Palpitations. denies: Pedal edema, Calf pain Respiratory: reports: Dyspnea. denies: Cough, Hemoptysis, Wheezing GI: denies: Abdominal Pain, Abdominal Swelling, Nausea, Vomiting, Constipation, Diarrhea : reports: Reviewed and negative Skin: reports: Reviewed and negative Musculoskeletal: reports: Neck pain Neurologic: reports: Reviewed and negative. denies: Near syncope, Syncope, Seizure, Confused, Altered mental status, Headache, Head injury PD PAST MEDICAL HISTORY - Past Medical History Cardiovascular: Hypertension, Atrial fibrillation Respiratory: None Neuro: Headaches, Migraines Endocrine/Autoimmune: None GI: None : None HEENT: None Psych: None Musculoskeletal: None Derm: None - Past Surgical History Past Surgical History: No Cardiovascular: Cardiac catheterization, Other - Present Medications Home Medications: Ambulatory Orders Medication Instructions Recorded Confirmed Flecainide [Tambocar] 50 mg PO BID PRN 07/25/19 11/29/19 Isosorbide Dinitrate 50 mg PO DAILY PRN 07/25/19 11/29/19 Diltiazem HCl [Tiazac] 240 mg PO DAILY 10/14/19 11/29/19 Ibuprofen [Motrin] 600 mg PO Q6H PRN #30 tab 03/07/20 traMADol [Ultram] 50 mg 03/07/20 - Allergies Allergies/Adverse Reactions: Allergies Allergy/AdvReac Type Severity Reaction Status Date / Time No Known Drug Allergies Allergy Verified 03/07/20 11:37 - Social History Does the pt smoke?: No Smoking Status: Never smoker Does the pt drink ETOH?: Yes Does the pt have substance abuse?: No - Immunizations Immunizations are current?: Yes - POLST Patient has POLST: No PD ED PE NORMAL - General General: Alert and oriented X 3, No acute distress - HEENT HEENT: PERRL - Neck Neck: Supple, no meningeal sign - Cardiac Cardiac: RRR, No murmur, No gallop, No rub, Strong equal pulses - Respiratory Respiratory: No respiratory distress, Clear bilaterally - Abdomen Abdomen: Normal bowel sounds, Soft, Non tender - Back Back: No CVA TTP - Derm Derm: Normal color, Warm and dry - Extremities Extremities: No deformity Results - Vitals Vitals: Vital Signs - 24 hr 03/07/20 11:23 Temperature 36.2 C L Heart Rate 91 Respiratory 16 Rate Blood Pressure 150/82 H O2 Saturation 99 Oxygen O2 Source Room air - EKG (time done) 1123 Rate: Rate (enter#) (91) [place]: Normal Intervals: Prolonged [place] QRS: Normal Ischemia: Non specific changes Compare to prior EKG: Unchanged from prior EKG Computer interpretation: Disagree with computer (essentailly unchanged from recent ECG) - Labs Labs: Laboratory Tests 03/07/20 03/07/20 03/07/20 11:55 11:55 11:55 WBC 5.0 RBC 4.79 Hgb 14.5 Hct 42.1 MCV 87.9 MCH 30.3 MCHC 34.4 RDW 12.0 Plt Count 326 MPV 9.7 Neut # (Auto) 2.6 Lymph # (Auto) 1.9 [place] # (Auto) 0.4 Eos # (Auto) 0.1 Baso # (Auto) 0.0 Absolute Nucleated RBC 0.00 Nucleated RBC % 0.0 ESR Sodium 138 Potassium 3.6 Chloride 102 Carbon Dioxide 28 Anion Gap 8.0 BUN 11 Creatinine 1.1 Estimated GFR (MDRD) 95 Glucose 93 Calcium 9.2 Total Bilirubin 1.2 H AST 20 ALT 18 Alkaline Phosphatase 44 Troponin I High Sens 5.9 C-Reactive Protein < 1.0 Total Protein 8.1 Albumin 4.4 Globulin 3.7 Albumin/Globulin Ratio 1.2 Lipase 29 03/07/20 11:55 WBC RBC Hgb Hct MCV MCH MCHC RDW Plt Count MPV Neut # (Auto) Lymph # (Auto) [place] # (Auto) Eos # (Auto) Baso # (Auto) Absolute Nucleated RBC Nucleated RBC % ESR 1 Sodium Potassium Chloride Carbon Dioxide Anion Gap BUN Creatinine Estimated GFR (MDRD) Glucose Calcium Total Bilirubin AST ALT Alkaline Phosphatase Troponin I High Sens C-Reactive Protein Total Protein Albumin Globulin Albumin/Globulin Ratio Lipase - Rads (name of study) CXR Radiology: Final report received (No acute cardiopulmonary process) PD MEDICAL DECISION MAKING - ED course Complexity details: reviewed old records, reviewed results, re-evaluated patie nt, considered differential, d/w patient, d/w sales enablement consultant (Dr. Chandra (Ferry Engineer)) ED course: 30-year-old male presents the emergency department with chief complaint of sharp pleuritic chest pain. He has had multiple similar presentations for this over the last 2 months. He does have a history of atrial fib as well as SVT. His shear grinder operator Dr. Chandra has seen him in the past and he did have an ablation completed about 1 year ago. Today on EKG he has sinus rhythm. It does suggest a very mild nonsignificant ST elevation globally. His high-sensitivity troponin is negative. Sed rate and CRP are also negative. Chest x-ray shows no cardiomegaly or focal infiltrates. At this time my suspicion for acute cardiac syndrome is very low. By Wells and PERC criteria he is also negative therefore I doubt a PE. Given lack of fevers and normal sed rate and CRP I also doubt that he has a pericarditis. Pt does report that the pain is sometimes worse with movements or reaching, thus suggesting a possible costochondritis. I did discuss this case with his shear grinder operator Dr. Chandra. He suggests trailing the patient on a short course of NSAID medication and following up with his primary care provider. At this time he does not feel that he needs to be followed up in his office. Departure - Departure Disposition: 01 Home, Self Care Clinical Impression: Chest pain Qualifiers: Chest pain type: unspecified Qualified Code(s): R07.9 - Chest pain, unspecified Condition: Stable Record reviewed to determine appropriate education?: Yes Instructions: ED Chest Pain NonCardiac Prescriptions: Ibuprofen [Motrin] 600 mg PO Q6H PRN #30 tab PRN Reason: Pain Comments: Jaylin I hope that you are feeling better soon. Today your EKG shows that you are in a sinus rhythm. Your labs are all essentially normal. Your chest x- ray is also unremarkable. I did discuss your chest pain with your shear grinder operator Dr. Mirza. He suggest that you take ibuprofen 2-3 times a day for the next week and [place] If at any point you develop a racing heart greater than 120 that does not get better with rest, you have fainting episodes, you cannot breathe normally or have any leg swelling then please return immediately to the ER
[2020-03-07 12:14] LABS: BASOPHILS % (AUTO) 0.6 %; EOSINOPHILS # (AUTO) 0.1 10^3/uL (0.0-0.7); HGB - HEMOGLOBIN 14.5 g/dL (14.0-18.0); LYMPHOCYTES # (AUTO) 1.9 10^3/uL (1.5-3.5); MEAN CORPUSCULAR HEMOGLOBIN 30.3 pg (27.0-31.0); MEAN CORPUSCULAR HGB CONC 34.4 g/dL (32.0-36.0); MEAN CORPUSCULAR VOLUME 87.9 fL (80.0-94.0); MEAN PLATELET VOLUME 9.7 fL (7.4-11.4); MONOCYTES # (AUTO) 0.4 10^3/uL (0.0-1.0); MONOCYTES % (AUTO) 8.8 %; NEUTROPHILS # (AUTO) 2.6 10^3/uL (1.5-6.6); NEUTROPHILS % (AUTO) 51.4 %; PLT - PLATELET COUNT 326 10^3/uL (130-450); RED BLOOD COUNT 4.79 10^6/uL (4.70-6.10)
--- NOTE | 2020-03-07 12:15 | XRAY Report ---
PROCEDURE: Chest 1 View X-Ray INDICATIONS: Chest pain TECHNIQUE: One view of the chest was acquired. COMPARISON: 11/23/2019, 10/26/2019 and 10/14/2019 FINDINGS: Surgical changes and devices: None. Lungs and pleura: No pleural effusions or pneumothorax. Lungs are clear. Mediastinum: Mediastinal contours appear normal. Heart size is normal. Bones and chest wall: No suspicious bony lesions. Overlying soft tissues appear unremarkable. IMPRESSION: No acute cardiopulmonary disease process. Reviewed by: Liya Rahman MD, PhD on 03/07/2020 12:13 PM PDT Approved by: Liya Rahman MD, PhD on 03/07/2020 12:13 PM PDT Station ID: [id number]
[2020-03-07 12:32] LABS: ALBUMIN 4.4 g/dL (3.2-5.5); ALBUMIN/GLOBULIN RATIO 1.2 (1.0-2.2); ALKALINE PHOSPHATASE 44 IU/L (42-121); ALT ALANINE AMINOTRANSFERASE 18 IU/L (10-60); AST ASPARTATE AMINOTRANSFERASE 20 IU/L (10-42); BILIRUBIN,TOTAL 1.2 mg/dL (0.2-1.0); BUN - BLOOD UREA NITROGEN 11 mg/dL (6-20); CALCIUM 9.2 mg/dL (8.5-10.3); CARBON DIOXIDE - CO2 28 mmol/L (21-32); CHLORIDE 102 mmol/L (101-111); CREATININE 1.1 mg/dL (0.6-1.2); GLUCOSE 93 mg/dL (70-100); LIPASE 29 U/L (22-51); SODIUM 138 mmol/L (135-145); TOTAL PROTEIN 8.1 g/dL (6.7-8.2)
[2020-03-07 12:43] LABS: CRP - C-REACTIVE PROTEIN < 1.0 mg/dL (0-1.0)
[2020-03-07] MEDS ORDERED: KETOROLAC 30 MG/ML VIAL IVP STA (13:06)
[2020-03-07 14:00] VITALS: BP 133/79
== END 2020-03-07 14:00 | disposition home or self-care (01) ==
LOC: ED 11:19
DX: R07.81 Pleurodynia (principal); I10 Essential (primary) hypertension; I44.0 Atrioventricular block, first degree; Z86.79 Personal history of other diseases of the circulatory system; Z98.61 Coronary angioplasty status
CPT/HCPCS: 36415; 71045; 80053; 83690; 84484; 85025; 85651; 86140; 93005; 96374; 99284

== ENCOUNTER 2020-12-24 12:11 | Emergency (ER) | payer OTHER ==
[2020-12-24 13:29] LABS: BASOPHILS # (AUTO) 0.1 10^3/uL (0.0-0.1); BASOPHILS % (AUTO) 0.9 %; EOSINOPHILS # (AUTO) 0.1 10^3/uL (0.0-0.7); EOSINOPHILS % (AUTO) 1.2 %; HCT - HEMATOCRIT 40.7 % (42.0-52.0); HGB - HEMOGLOBIN 13.8 g/dL (14.0-18.0); LYMPHOCYTES # (AUTO) 2.8 10^3/uL (1.5-3.5); LYMPHOCYTES % (AUTO) 49.7 %; MEAN CORPUSCULAR HGB CONC 33.9 g/dL (32.0-36.0); MEAN CORPUSCULAR VOLUME 88.5 fL (80.0-94.0); MEAN PLATELET VOLUME 9.3 fL (7.4-11.4); MONOCYTES # (AUTO) 0.5 10^3/uL (0.0-1.0); MONOCYTES % (AUTO) 8.5 %; NEUTROPHILS # (AUTO) 2.2 10^3/uL (1.5-6.6); NEUTROPHILS % (AUTO) 39.5 %; PLT - PLATELET COUNT 330 10^3/uL (130-450); RED CELL DISTRIBUTION WIDTH 12.5 % (12.0-15.0); WHITE BLOOD COUNT 5.7 x10^3/uL (4.8-10.8)
[2020-12-24 13:41] LABS: ALBUMIN 4.4 g/dL (3.2-5.5); ALBUMIN/GLOBULIN RATIO 1.3 (1.0-2.2); BILIRUBIN,TOTAL 1.1 mg/dL (0.2-1.0); CALCIUM 9.5 mg/dL (8.5-10.3); POTASSIUM 4.5 mmol/L (3.5-5.0); TOTAL PROTEIN 7.9 g/dL (6.7-8.2)
--- NOTE | 2020-12-24 13:46 | XRAY Report ---
PROCEDURE: Chest 1 View X-Ray INDICATIONS: Chest Pain TECHNIQUE: One view of the chest was acquired. COMPARISON: 03/07/2020 and 11/23/2019 FINDINGS: Surgical changes and devices: None. Lungs and pleura: No pleural effusions or pneumothorax. Lungs are clear. Mediastinum: Mediastinal contours appear normal. Heart size is normal. Bones and chest wall: No suspicious bony lesions. Overlying soft tissues appear unremarkable. IMPRESSION: Stable examination of the chest without acute cardiopulmonary abnormalities or focal airspace disease . Reviewed by: Ian Olguin MD on 12/24/2020 1:45 PM PDT Approved by: Ian Olguin MD on 12/24/2020 1:45 PM PDT Station ID: [id number]
--- NOTE | 2020-12-24 14:23 | ED Physician Documentation ---
PD HPI CHEST PAIN - Stated complaint Stated Complaint: CHEST PX - Chief complaint Chief Complaint: Cardiac - History obtained from History obtained from: Patient - Additional information Additional information: 30-year-old gentleman has had ongoing problems with costochondritis. For the last 3 days he has had sharp pain on the right side of the sternum. Its absent at rest and only bothers him if he moves his arms or changes position. It does not radiate. No shortness of breath. Review of Systems Constitutional: reports: Reviewed and negative Eyes: reports: Reviewed and negative Ears: reports: Reviewed and negative Nose: reports: Reviewed and negative Throat: reports: Reviewed and negative PD PAST MEDICAL HISTORY - Past Medical History Cardiovascular: Hypertension, Atrial fibrillation Respiratory: None Neuro: Headaches, Migraines Endocrine/Autoimmune: None GI: None : None HEENT: None Psych: None Musculoskeletal: None Derm: None - Past Surgical History Past Surgical History: No Cardiovascular: Cardiac catheterization, Other - Present Medications Home Medications: Ambulatory Orders Medication Instructions Recorded Confirmed Flecainide [Tambocar] 50 mg PO BID PRN 07/25/19 11/29/19 Isosorbide Dinitrate 50 mg PO DAILY PRN 07/25/19 11/29/19 Diltiazem HCl [Tiazac] 240 mg PO DAILY 10/14/19 11/29/19 Ibuprofen [Motrin] 600 mg PO Q6H PRN #30 tab 03/07/20 traMADol [Ultram] 50 mg 03/07/20 - Allergies Allergies/Adverse Reactions: Allergies Allergy/AdvReac Type Severity Reaction Status Date / Time No Known Drug Allergies Allergy Verified 12/24/20 12:39 - Social History Does the pt smoke?: No Smoking Status: Never smoker Does the pt drink ETOH?: Yes Does the pt have substance abuse?: No - Immunizations Immunizations are current?: Yes - POLST Patient has POLST: No PD ED PE NORMAL - Vitals Vital signs reviewed: Yes - General General: Alert and oriented X 3, No acute distress - HEENT HEENT: PERRL, EOMI - Neck Neck: Supple, no meningeal sign, No bony TTP - Cardiac Cardiac: RRR, No murmur, Other (Focally tender to the right costochondral junction) - Respiratory Respiratory: No respiratory distress, Clear bilaterally - Extremities Extremities: No edema, No calf tenderness / cord - Neuro Neuro: Alert and oriented X 3, Normal speech Results - Vitals Vitals: Vital Signs - 24 hr 12/24/20 12:33 Temperature 36.5 C Heart Rate 66 Respiratory 16 Rate Blood Pressure 139/75 H O2 Saturation 100 Oxygen O2 Source Room air - EKG (time done) 1233 Rate: Rate (enter#) (62) Rhythm: NSR [place]: RAD Intervals: Normal [place] QRS: Normal Ischemia: Normal ST segments, ST elevation c/w repol. No: ST elevation c/w ischemia, ST depression - Labs Labs: Laboratory Tests 12/24/20 12/24/20 12/24/20 13:22 13:22 13:22 WBC 5.7 RBC 4.60 L Hgb 13.8 L Hct 40.7 L MCV 88.5 MCH 30.0 MCHC 33.9 RDW 12.5 Plt Count 330 MPV 9.3 Neut # (Auto) 2.2 Lymph # (Auto) 2.8 [place] # (Auto) 0.5 Eos # (Auto) 0.1 Baso # (Auto) 0.1 Absolute Nucleated RBC 0.00 Nucleated RBC % 0.0 Sodium 140 Potassium 4.5 Chloride 105 Carbon Dioxide 30 Anion Gap 5.0 L BUN 10 Creatinine 1.0 Estimated GFR (MDRD) 106 Glucose 97 Calcium 9.5 Total Bilirubin 1.1 H AST 14 ALT 16 Alkaline Phosphatase 43 Troponin I High Sens 6.3 Total Protein 7.9 Albumin 4.4 Globulin 3.5 Albumin/Globulin Ratio 1.3 Lipase 29 PD MEDICAL DECISION MAKING - ED course ED course: Heart score 0, PERC negative , Otherwise very consistent with persistent costochondritis. He is already taking high-dose naproxen, to be continued. Departure - Departure Disposition: 01 Home, Self Care Clinical Impression: Costochondritis Condition: Good Record reviewed to determine appropriate education?: Yes Instructions: ED Chest Pain Costochondritis Comments: Continue current medications. [place].
[2020-12-24 14:26] VITALS: BP 128/95
== END 2020-12-24 14:36 | disposition home or self-care (01) ==
LOC: ED 12:11
DX: M94.0 Chondrocostal junction syndrome [Tietze] (principal); I10 Essential (primary) hypertension; I48.91 Unspecified atrial fibrillation
CPT/HCPCS: 36415; 80053; 83690; 84484; 85025; 93005; 99284

== ENCOUNTER 2021-02-25 08:12 | Emergency (ER) | payer OTHER ==
--- NOTE | 2021-02-25 08:43 | XRAY Report ---
PROCEDURE: Chest 1 View X-Ray INDICATIONS: Chest pain TECHNIQUE: One view of the chest was acquired. COMPARISON: 12/24/2020 FINDINGS: Surgical changes and devices: None. Lungs and pleura: No pleural effusions or pneumothorax. Lungs are clear. Mediastinum: Mediastinal contours appear normal. Heart size is normal. Bones and chest wall: No suspicious bony lesions. Overlying soft tissues appear unremarkable. IMPRESSION: No acute cardiopulmonary process demonstrated radiographically. Reviewed by: Paul Hernandez MD on 02/25/2021 8:41 AM PDT Approved by: Paul Hernandez MD on 02/25/2021 8:41 AM PDT Station ID: [id number]
--- NOTE | 2021-02-25 08:53 | ED Physician Documentation ---
History of Present Illness - Stated complaint Stated Complaint: HEART PALP/LT ARM TINGLING - Chief complaint Chief Complaint: Cardiac - History obtained from History obtained from: Patient - History of Present Illness Timing: Today - Additonal information Additional information: 31-year-old male who is on diltiazem for rate control of intermittent atrial fibrillation and is being medically discharged from the [facility] has awoken this morning with some left arm numbness and tingling and anterior chest wall pain. He feels some palpitations as well. He feels that this is likely a stress reaction as he is under a lot of stress with the medical discharge from the [facility] a who is in [place] and being alone here in [place]. He is seeing a counselor he is not sleeping well and he does not feel that the counseling has helped. He indicates that he had used flecainide about a month and a half ago he thinks that he gets palpitations enough with a rapid rate that he has an episode about once a month. Review of Systems Constitutional: denies: Fever, Chills, Myalgias Eyes: denies: Decreased vision Ears: denies: Ear pain Nose: denies: Rhinorrhea / runny nose, Congestion Throat: denies: Sore throat Cardiac: reports: Chest pain / pressure, Palpitations. denies: Pedal edema, Calf pain Respiratory: denies: Dyspnea, Cough, Wheezing GI: reports: Abdominal Pain (mild "gas pains" periodically). denies: Nausea, Vomiting, Constipation, Diarrhea : denies: Dysuria, Frequency Skin: denies: Rash Musculoskeletal: denies: Neck pain, Back pain, Extremity pain Neurologic: denies: Generalized weakness, Focal weakness, Numbness Psychiatric: reports: Depressed, Anxiety, Insomnia PD PAST MEDICAL HISTORY - Past Medical History Past Medical History: Yes Cardiovascular: Hypertension, Atrial fibrillation Respiratory: None Neuro: Headaches, Migraines Endocrine/Autoimmune: None GI: None : None HEENT: None Psych: None Musculoskeletal: None Derm: None - Past Surgical History Past Surgical History: No Cardiovascular: Cardiac catheterization, Other - Present Medications Home Medications: Ambulatory Orders Medication Instructions Recorded Confirmed Flecainide [Tambocar] 50 mg PO BID PRN 07/25/19 02/25/21 Isosorbide Dinitrate 50 mg PO DAILY PRN 07/25/19 02/25/21 Diltiazem HCl [Tiazac] 240 mg PO DAILY 10/14/19 02/25/21 Ibuprofen [Motrin] 600 mg PO Q6H PRN #30 tab 03/07/20 02/25/21 traMADol [Ultram] 50 mg PO PRN PRN 03/07/20 02/25/21 traZODone [Desyrel] 50 mg PO HS #40 tablet 02/25/21 - Allergies Allergies/Adverse Reactions: Allergies Allergy/AdvReac Type Severity Reaction Status Date / Time No Known Drug Allergies Allergy Verified 02/25/21 08:23 - Social History Does the pt smoke?: No Smoking Status: Never smoker Does the pt drink ETOH?: No Does the pt have substance abuse?: No - Immunizations Immunizations are current?: Yes - POLST Patient has POLST: No PD ED PE NORMAL - Vitals Vital signs reviewed: Yes (hypertensive) - General General: Alert and oriented X 3, No acute distress, Well developed/nourished - HEENT HEENT: Atraumatic, PERRL, EOMI - Neck Neck: Supple, no meningeal sign, No bony TTP - Cardiac Cardiac: RRR, No murmur, Other (minimal chest wall tenderness ) - Respiratory Respiratory: No respiratory distress, Clear bilaterally - Abdomen Abdomen: Soft, Non tender - Back Back: No CVA TTP, No spinal TTP - Derm Derm: Normal color, Warm and dry, No rash - Extremities Extremities: No deformity, No edema - Neuro Neuro: Alert and oriented X 3, doctor of dental medicine 2-12 intact, No motor deficit, No sensory deficit, Normal speech Eye Opening: Spontaneous Motor: Obeys Commands Verbal: Oriented GCS Score: 15 - Psych Psych: Normal mood, Normal affect Results - Vitals Vitals: Vital Signs - 24 hr 02/25/21 02/25/21 02/25/21 08:20 08:25 10:22 Temperature 36.0 C L Heart Rate 82 70 65 Respiratory 16 8 L 18 Rate Blood Pressure 169/97 H 169/97 H 146/75 H O2 Saturation 100 100 99 Oxygen O2 Source Room air - EKG (time done) 0815 Rate: Rate (enter#) (71) Rhythm: NSR [place]: RAD (borderline) Ischemia: ST elevation c/w repol Compare to prior EKG: Unchanged from prior EKG (SPT 12-24-20 no changes) Computer interpretation: Agree with computer - Labs Labs: Laboratory Tests 02/25/21 02/25/21 02/25/21 08:41 08:41 08:41 WBC 4.7 L RBC 4.19 L Hgb 12.7 L Hct 37.6 L MCV 89.7 MCH 30.3 MCHC 33.8 RDW 13.0 Plt Count 352 MPV 9.3 Neut # (Auto) 2.2 Lymph # (Auto) 2.0 [place] # (Auto) 0.4 Eos # (Auto) 0.1 Baso # (Auto) 0.1 Absolute Nucleated RBC 0.00 Nucleated RBC % 0.0 Sodium 143 Potassium 3.5 Chloride 105 Carbon Dioxide 29 Anion Gap 9.0 BUN 10 Creatinine 1.0 Estimated GFR (MDRD) 106 Glucose 95 Calcium 8.9 Total Bilirubin 1.5 H AST 18 ALT 24 Alkaline Phosphatase 40 L Troponin I High Sens 8.0 Total Protein 7.6 Albumin 4.1 Globulin 3.5 Albumin/Globulin Ratio 1.2 Lipase 26 - Rads (name of study) chest Radiology: Prelim report reviewed (Impression: No acute cardiopulmonary process demonstrated radiographically), EMP read indepedently, See rad report PD MEDICAL DECISION MAKING - ED course Complexity details: reviewed old records, reviewed results, re-evaluated patient, considered differential, d/w patient ED course: 31-year-old male with a history of intermittent atrial fibrillation has been medically from the [facility] and he is under significant stress. Today we did not find evidence of coronary syndrome or any worrisome findings. I discussed with the patient regulation of his sleep for improvement in his anxiety and depression. We will trial the patient on trazodone. Departure - Departure Disposition: 01 Home, Self Care Clinical Impression: Stress reaction Insomnia Qualifiers: Insomnia type: adjustment Qualified Code(s): F51.02 - Adjustment insomnia Condition: Stable Instructions: ED Stress React, ED Insomnia Follow-Up: REBEKAH Francis [Provider Group] Prescriptions: traZODone [Desyrel] 50 mg PO HS #40 tablet Comments: May, today we are initiating therapy with trazodone which should help with your sleep. The recommendation is to take 50 mg at night for 3 nights and then increase to 100 mg at night. You may have some morning hangover from this medication that will improve over the next week. With any luck this medication will help quite a bit to allow you to process your thoughts better for all of the stress you are under.
[2021-02-25 08:56] LABS: BASOPHILS # (AUTO) 0.1 10^3/uL (0.0-0.1); BASOPHILS % (AUTO) 1.3 %; EOSINOPHILS # (AUTO) 0.1 10^3/uL (0.0-0.7); EOSINOPHILS % (AUTO) 1.9 %; HCT - HEMATOCRIT 37.6 % (42.0-52.0); HGB - HEMOGLOBIN 12.7 g/dL (14.0-18.0); LYMPHOCYTES % (AUTO) 41.8 %; MEAN CORPUSCULAR HEMOGLOBIN 30.3 pg (27.0-31.0); MEAN CORPUSCULAR HGB CONC 33.8 g/dL (32.0-36.0); MEAN CORPUSCULAR VOLUME 89.7 fL (80.0-94.0); MEAN PLATELET VOLUME 9.3 fL (7.4-11.4); MONOCYTES # (AUTO) 0.4 10^3/uL (0.0-1.0); NEUTROPHILS # (AUTO) 2.2 10^3/uL (1.5-6.6); NEUTROPHILS % (AUTO) 45.8 %; PLT - PLATELET COUNT 352 10^3/uL (130-450); RED BLOOD COUNT 4.19 10^6/uL (4.70-6.10); WHITE BLOOD COUNT 4.7 x10^3/uL (4.8-10.8)
[2021-02-25 09:11] LABS: ALBUMIN 4.1 g/dL (3.2-5.5); ALBUMIN/GLOBULIN RATIO 1.2 (1.0-2.2); BILIRUBIN,TOTAL 1.5 mg/dL (0.2-1.0); CALCIUM 8.9 mg/dL (8.5-10.3); POTASSIUM 3.5 mmol/L (3.5-5.0); TOTAL PROTEIN 7.6 g/dL (6.7-8.2)
[2021-02-25 10:41] VITALS: BP 146/75
== END 2021-02-25 11:00 | disposition home or self-care (01) ==
LOC: ED 08:12
DX: F51.02 Adjustment insomnia (principal); F43.9 Reaction to severe stress, unspecified; I48.91 Unspecified atrial fibrillation; I10 Essential (primary) hypertension
CPT/HCPCS: 36415; 80053; 83690; 84484; 85025; 93005; 99283; 99284